=== PATIENT | male | born 1980 | race Caucasian/White ===

== ENCOUNTER 2016-11-20 15:22 | Emergency (ER) | payer OTHER ==
[~2016-11-20] VITALS: Ht 160 cm; Wt 52.0 kg
[2016-11-20 15:28] VITALS: Ht 160 cm; Wt 52.0 kg
[2016-11-20] MEDS ORDERED: IBUPROFEN 600 MG TAB PO STA (16:49)
--- NOTE | 2016-11-20 19:07 | RADRPT ---
PROCEDURE: X-ray right wrist CLINICAL INDICATION: Trauma to the right wrist with reference marker directed towards the medial r ight wrist. TECHNIQUE: 4 views right wrist. COMPARISON: None. FINDINGS: No acute fracture or dislocation. Soft tissues unremarkable. IMPRESSION: No acute fracture. RPTAT: [facility] Physician Su Date Time Electronically viewed and signed by Talia Kemp Physician on 11/20/2016 19:07 RS/
[2016-11-20] MEDS ORDERED: IBUP-1542 PO (19:10)
--- NOTE | 2016-11-20 19:23 | ERA ---
ER Documentation Chief Complaint Date/Time DATE: 11/20/16 TIME: 19:23 Chief Complaint PT with R wirst pain X 2 hours. HPI This is a 36-year-old female presenting to the emergency department complaining of right ulnar aspect wrist pain status post lifting a heavy sofa couple hours prior to being seen. Patient rates the pain moderate in severity. She states that the pain is increased with flexion. She denies any numbness or tingling. She denies taking any medication for the ROS All systems reviewed and are negative except as per history of present illness. Medications Home Meds Active Scripts Ibuprofen* (Motrin*) 600 Mg Tab, 600 MG PO Q6H Y for PAIN AND OR ELEVATED TEMP, #30 TAB Prov:ALEISHA WELCH PA-C 11/20/16 PMhx/Soc History of Surgery: Yes (BIOPSY LEFT HIP) Anesthesia Reaction: No Hx Neurological Disorder: No Hx Respiratory Disorders: No Hx Cardiac Disorders: No Hx Psychiatric Problems: No Hx Miscellaneous Medical Probl: No Hx Alcohol Use: No Hx Substance Use: No Hx Tobacco Use: No Physical Exam Vitals Vital Signs Date Time Temp Pulse Resp B/P Pulse Ox O2 Delivery O2 Flow Rate FiO2 11/20/16 15:28 98.6 70 18 122/82 100 Physical Exam General: WD/WN, in no apparent distress, non-toxic appearing HENT: NC/AT Eyes: Conjunctiva normal Neck: Supple Pulm: Clear to auscultation, normal labored breathing; no wheezing/rales/ rhonchi heard CV: Good capillary refill GI: Non-distended, no guarding Back: No masses Ext: Tenderness to palpation on the right ulnar aspect right wrist Neuro: Moves on all fours Skin: intact Psych: Normal mood Results 24 hrs Current Medications Medications (Trade) Dose Ordered Sig/Tye Route PRN Reason Start Time Stop Time Status Last Admin Dose Admin Ibuprofen (Motrin) 600 mg ONCE STAT PO 11/20/16 16:49 11/20/16 16:50 DC 11/20/16 17:15 Procedures/MDM This is a 36-year-old female presenting to the emergency department complaining of right ulnar aspect wrist pain which is likely due to a wrist sprain. An x- ray of the right wrist was done did not show any evidence of fracture or dislocation. Patient was given a Velcro splints and Phuc bandage. Patient is neurovascular intact Pre-and post treatment. Patient is stable to be discharged home with precautions to return emergency department for any worsening symptoms. Patient understands and agrees with this plan Departure Diagnosis: Primary Impression: Wrist sprain Condition: Stable Patient Instructions: Wrist Sprain Additional Instructions: FOLLOW UP WITH YOUR PRIMARY CARE PHYSICIAN TOMORROW.Return to this facility if you are not improving as expected. Take all medicines as directed. Return to this facility if you are not improving as expected. ALEISHA WELCH PA-C Nov 20, 2016 19:23
== END 2016-11-20 19:26 | disposition home or self-care (01) ==
LOC: FTE 15:22
DX: S63.501A Unspecified sprain of right wrist, initial encounter (principal); X50.0XXA Overexertion from strenuous movement or load, initial encounter; Y92.9 Unspecified place or not applicable
CPT/HCPCS: 29125; 73110; Z7502; Z7610